=== PATIENT | female | born 1950 | race Caucasian/White ===

== ENCOUNTER 2016-12-13 01:14 | Emergency (ER) | payer OTHER ==
[~2016-12-13] VITALS: Ht 167.6 cm; Wt 120.2 kg
[~2016-12-13 01:14] MED LIST: LAC PO; MACROBID100 MG PO; MEDDP PO; PREDNISONE20 MG PO
[2016-12-13 03:44] LABS: microscopic required? NO
[2016-12-13 04:20] LABS: UA SPECIFIC GRAVITY 1.025 (1.005-1.035); urine erythrocyte NEGATIVE (NEGATIVE)
[2016-12-13 05:45] VITALS: BP 142/72
== END 2016-12-13 05:40 | disposition home or self-care (01) ==
LOC: ED 01:14
PROVIDERS: Emergency Medicine
DX: S39.012A Strain of muscle, fascia and tendon of lower back, initial encounter (principal); E89.0 Postprocedural hypothyroidism; Z79.899 Other long term (current) drug therapy; Z85.850 Personal history of malignant neoplasm of thyroid; Z88.5 Allergy status to narcotic agent; Z88.0 Allergy status to penicillin; Z88.8 Allergy status to other drugs, medicaments and biological substances; X58.XXXA Exposure to other specified factors, initial encounter; Y93.89 Activity, other specified; Y92.89 Other specified places as the place of occurrence of the external cause; Y99.8 Other external cause status

== ENCOUNTER 2017-05-25 15:32 | Emergency (ER) | payer OTHER ==
[~2017-05-25] VITALS: Ht 167.6 cm; Wt 114.3 kg
[2017-05-25 15:34] VITALS: Ht 167.6 cm; Wt 114.3 kg
[2017-05-25 17:37] LABS: BASOPHIL % 0.2 % (0-2); PLATELET COUNT 178 x10^3mcL (130-400); RED CELL DISTRIBUTION WIDTH 12.9 % (11.5-14.5)
[2017-05-25 17:49] LABS: CALCIUM 9.2 mg/dL (8.5-10.1); CARBON DIOXIDE 25.5 mmol/L (21-32); CHLORIDE SERUM 102 mmol/L (98-107); CREATININE SERUM 0.8 mg/dL (0.6-1.0); GFR1 > 60 mL/min; GLUCOSE SERUM 111 mg/dL (74-106); POTASSIUM SERUM 3.6 mmol/L (3.5-5.1); SODIUM SERUM 138 mmol/L (136-145)
[2017-05-25 18:06] LABS: ALBUMIN 3.7 g/dL (3.4-5.0); ALKALINE PHOSPHATASE 112 U/L (46-116); ALT/SGPT 42 U/L (14-59); AST/SGOT 38 U/L (15-37); BILIRUBIN TOTAL 1.01 mg/dL (0.20-1.00); FREE T4 1.68 ng/dL (0.76-1.46); LIPASE 77 IU/L (73-393); TOTAL PROTEIN, SERUM 7.1 g/dL (6.4-8.2)
[2017-05-25 18:44] VITALS: BP 139/79
== END 2017-05-25 18:44 | disposition home or self-care (01) ==
LOC: ED 15:32
PROVIDERS: Emergency Medicine
DX: R07.89 Other chest pain (principal); R51 Headache; Z88.0 Allergy status to penicillin; Z88.5 Allergy status to narcotic agent; Z88.8 Allergy status to other drugs, medicaments and biological substances; Z90.89 Acquired absence of other organs
CPT/HCPCS: 36415; 84439; 85378

== ENCOUNTER 2017-06-24 11:00 | Inpatient (IN) | payer OTHER ==
[~2017-06-24] VITALS: Ht 167.6 cm; Wt 113.4 kg
[2017-06-24 11:56] LABS: BASOPHIL % 0.6 % (0-2); PLATELET COUNT 160 x10^3mcL (130-400); RED CELL DISTRIBUTION WIDTH 12.7 % (11.5-14.5)
[2017-06-24 12:01] LABS: CALCIUM 9.1 mg/dL (8.5-10.1); CARBON DIOXIDE 29.7 mmol/L (21-32); CHLORIDE SERUM 107 mmol/L (98-107); CREATININE SERUM 0.8 mg/dL (0.6-1.0); GFR1 > 60 mL/min; GLUCOSE SERUM 126 mg/dL (74-106); POTASSIUM SERUM 4.1 mmol/L (3.5-5.1); SODIUM SERUM 144 mmol/L (136-145)
[2017-06-24 12:12] LABS: ALBUMIN 3.5 g/dL (3.4-5.0); ALKALINE PHOSPHATASE 98 U/L (46-116); ALT/SGPT 53 U/L (14-59); AST/SGOT 39 U/L (15-37); BILIRUBIN TOTAL 0.95 mg/dL (0.20-1.00); TOTAL PROTEIN, SERUM 6.7 g/dL (6.4-8.2)
[2017-06-24 12:24] LABS: FREE T4 1.54 ng/dL (0.76-1.46); FREE THYROXINE INDEX 4.3 ug/dL (1.4-4.5)
[2017-06-24 12:26] LABS: T3 TOTAL 1.16 ng/mL
[2017-06-24] MEDS ORDERED: VITAMIN B121000 MCG PO (13:09)
[2017-06-24] MEDS ORDERED: GOOD SENSE ASPI81 M3 PO (13:10)
[2017-06-24] MEDS ORDERED: ATORVASTATIN CA20 M1 PO (13:10)
[2017-06-24] MEDS ORDERED: CLARITIN10 MG PO (13:11)
[2017-06-24] MEDS ORDERED: LEVOTHYROXINE0.2 M2 PO (13:11)
[2017-06-24] MEDS ORDERED: VITAMIN D50000 I4 PO (13:11)
[2017-06-24 14:38] VITALS: BP 137/63
[2017-06-24 14:41] VITALS: Ht 167.6 cm; Wt 113.4 kg
[2017-06-24 15:11] LABS: PHOSPHOROUS 3.2 mg/dL (2.5-4.9)
[2017-06-24 15:16] LABS: CHOLESTEROL/HDL RATIO 2.8
[2017-06-24 16:49] LABS: microscopic required? NO
[2017-06-24 16:54] LABS: urine erythrocyte NEGATIVE (NEGATIVE)
[2017-06-24 17:02] LABS: AMPHETAMINE QUAL UR NONE DETECTED (NEG <=1000)
[2017-06-24 17:44] VITALS: BP 139/49
[2017-06-24 19:54] VITALS: BP 118/49
[2017-06-25 05:44] LABS: BASOPHIL % 1.5 % (0-2); PLATELET COUNT 150 x10^3mcL (130-400); RED CELL DISTRIBUTION WIDTH 12.5 % (11.5-14.5)
[2017-06-25 05:59] VITALS: BP 125/53
[2017-06-25 07:07] LABS: CALCIUM 8.6 mg/dL (8.5-10.1); CARBON DIOXIDE 25.9 mmol/L (21-32); CHLORIDE SERUM 107 mmol/L (98-107); CREATININE SERUM 0.8 mg/dL (0.6-1.0); GFR1 > 60 mL/min; GLUCOSE SERUM 104 mg/dL (74-106); MAGNESIUM 2.1 mg/dL (1.8-2.4); PHOSPHOROUS 3.5 mg/dL (2.5-4.9); POTASSIUM SERUM 4.1 mmol/L (3.5-5.1); SODIUM SERUM 142 mmol/L (136-145)
[2017-06-25 09:37] VITALS: BP 149/76
[2017-06-25 13:01] VITALS: BP 145/56
[2017-06-25 17:22] VITALS: BP 101/53
[2017-06-25 20:02] VITALS: BP 113/54
[2017-06-25 21:47] VITALS: BP 107/44
[2017-06-26 06:23] VITALS: BP 106/41
[2017-06-26 06:24] VITALS: BP 106/41
[2017-06-26 09:43] VITALS: BP 118/47
[2017-06-26 12:46] VITALS: BP 141/62
[2017-06-26] MEDS ORDERED: PRI20 PO (14:31)
[2017-06-26] MEDS ORDERED: PRA20 PO (14:31)
[2017-06-26 15:17] VITALS: BP 141/62
== END 2017-06-26 15:00 | disposition home or self-care (01) | DRG 644 ==
LOC: ED 11:00 → DU 12:56
PROVIDERS: Emergency Medicine; Family Medicine
DX: E05.80 Other thyrotoxicosis without thyrotoxic crisis or storm (principal); Z68.41 Body mass index [BMI] 40.0-44.9, adult; R07.9 Chest pain, unspecified; R51 Headache; T38.1X5A Adverse effect of thyroid hormones and substitutes, initial encounter; E89.0 Postprocedural hypothyroidism; K21.9 Gastro-esophageal reflux disease without esophagitis; E78.00 Pure hypercholesterolemia, unspecified; E78.5 Hyperlipidemia, unspecified; E66.01 Morbid (severe) obesity due to excess calories; Z85.850 Personal history of malignant neoplasm of thyroid; Z92.3 Personal history of irradiation; Z88.0 Allergy status to penicillin; Z88.5 Allergy status to narcotic agent; Z79.82 Long term (current) use of aspirin; Z88.8 Allergy status to other drugs, medicaments and biological substances; Z82.49 Family history of ischemic heart disease and other diseases of the circulatory system; Z82.5 Family history of asthma and other chronic lower respiratory diseases; Z83.49 Family history of other endocrine, nutritional and metabolic diseases; Z90.49 Acquired absence of other specified parts of digestive tract; Y92.009 Unspecified place in unspecified non-institutional (private) residence as the place of occurrence of the external cause
CPT/HCPCS: 83880; 84439; J3475; J7030; Q0092

== ENCOUNTER 2017-10-15 19:30 | Emergency (ER) | payer OTHER ==
[~2017-10-15] VITALS: Ht 165.1 cm; Wt 112.9 kg
[~2017-10-15 19:30] MED LIST changes: +ATORVASTATIN CA20 M1 PO; +CLARITIN10 MG PO; +GOOD SENSE ASPI81 M3 PO; +LEVOTHYROXINE0.2 M2 PO; +PRA20 PO; +PRI20 PO; +VITAMIN B121000 MCG PO; +VITAMIN D50000 I4 PO
[2017-10-15 19:51] VITALS: Ht 165.1 cm; Wt 112.9 kg
[2017-10-15 22:17] VITALS: BP 150/61
== END 2017-10-15 22:17 | disposition home or self-care (01) ==
LOC: ED 19:30
DX: J38.5 Laryngeal spasm (principal); E78.00 Pure hypercholesterolemia, unspecified; Z88.0 Allergy status to penicillin; Z88.5 Allergy status to narcotic agent; Z88.8 Allergy status to other drugs, medicaments and biological substances
CPT/HCPCS: J7512; J7633

== ENCOUNTER 2018-03-07 14:14 | Emergency (ER) | payer OTHER ==
[~2018-03-07] VITALS: Ht 167.6 cm; Wt 113.4 kg
[2018-03-07 14:44] VITALS: Ht 167.6 cm; Wt 113.4 kg
[2018-03-07 17:30] VITALS: BP 138/88
== END 2018-03-07 17:30 | disposition home or self-care (01) ==
LOC: ED 14:14
DX: M25.562 Pain in left knee (principal); E78.00 Pure hypercholesterolemia, unspecified; Z88.0 Allergy status to penicillin; Z88.5 Allergy status to narcotic agent; Z88.8 Allergy status to other drugs, medicaments and biological substances; Z98.890 Other specified postprocedural states